=== PATIENT | female | born 1980 | race Hispanic/Latino ===

== ENCOUNTER 2017-03-07 07:30 | Inpatient (IN) | payer OTHER ==
[~2017-03-07] VITALS: Ht 157.5 cm; Wt 117.0 kg
[~2017-03-07 07:30] MED LIST: ALBU8.5H2 INHALATION; ASCO-294 PO; Carboprost 250 mCg/mL Inj IM PRN; CeFAZolin Inj 2 GM in IV Premix 1 EACH IV ONE; DOCU-41 PO; FERR-83 PO; GLBR5T PO; Hemorrhage Kit, Post Partum XX ONE; IBUP800T28 PO; LORA5SOL82 PO; Lactated Ringer's 1,000 ML IV SCH; METF-496 PO; METF500T4 PO; Methylergonovine 0.2 mg/mL Inj IM PRN; OXYC1TAB24 PO; Oxytocin 10 Unit/mL Inj IM PRN; Sodium Citrate-Citric Acid 15 mL Solution PO SCH
--- NOTE | 2017-03-07 08:45 | PCM.HPOB ---
Subjective Date of Service: Mar 07, 2017 Referring Provider: Admitting Physician: Nicole Andres MD Primary Care Physician: Alison Grayson Attending Physician: Nicole Andres MD Chief Complaint Scheduled repeat at term 38 weeks 6 days in a known type 2 diabetic History of Present History of Present Illness Karly is a 36y/o at 38 weeks and 6 days with known hx of DM2 on metfomin and glyburide with most recent Hb1 A1c of 6.0 on 12/21/2016 and with relatively well controlled blood glucoses, who presented to [facility] for scheduled repeat c- section. Patient has hx of one other term gestation with , and SAB X 2. Patient has had one previous Patient was followed by MFM prenatally. Has hx of chronic pain with pain management through the . Her JAIRO is 03-15-2017 by 8 week . Blood type O+, ab screen negative, Rubella immune, Varicella immune, HIV(-), Hep B and Hep C (-), RPR non reactive, GC/Cl (-). Vitals: HR 73,BP 125/65 OB History: (4), Para (1021) Obstetrical Complications: Other (Obesity, DM2) Past Medical History Obstetrical History: Spontaneous abortions X 2 Hx of 1 prior @ term, live Medical History: DM 2 on metformin and glyburide Surgical History: None Hx Tobacco Use: No Hx Alcohol Use: No Hx Substance Use: Yes (Marijuana use) Past Family History Family History None contributory Living Arrangement: with Family Genetic Screening/Counseling Genetic Screening/Counseling: Negative Baby father-had child w defect: No Review of Systems Constitutional: Y: Change of appitite, Chills, Fever, Sweats Eyes: Denies: Blurred Vision, Double Vision Cardiovascular: Denies: Chest Pain, Palpitations, SOB while laying flat Respiratory: Denies: Cough, Pleuritic Chest Pain, SOB with Exertion Gastrointestinal: Denies: Abdominal Pain Genitourinary: Denies: Dysuria Musculoskeletal: Denies: Neck Pain, Swelling Skin/Breasts: Denies: Bruising Skin: Denies: Rash Neurological: Denies: Change in Speech, Seizures Medications Home medications Metformin 100 mg daily Glyburide 5 mg daily Percocet 10/325 mg Allergy Coded Allergies: hydrocodone (Verified Adverse Reaction, Mild, nausea and vomiting, 03/07/17 ) Exam Vital Signs Vitals: HR 73,BP 125/65 Exam Not available Constitutional: Well-developed, Obese (massive obesity) HEENT: Atraumatic, PERRLA, Scleral Anicteric, Mucous Membr Moist/[place] Lungs: Clear to Auscultation, Normal Air Movement Heart: Exam Unremarkable, Regular Rate/Rhythm, Normal S1, Normal S2, No Murmurs /Rubs/Gallops Abdomen: Gravid Lymphatic: Normal: Neck Palpation of Nodes Extremities: Pulses Palpable x4, No Edema Skin: Rashes Neurological/Psychiatric: Alert, Oriented X3, No Acute Distress Neuro: Grossly Neurologically Intact, Reflexes 2+, Strength at 5/5 x4 ext Labs/Diagnostics Maternal Blood Type: O (+) Antibody Screen: negative Group B Strep Results: Negative Previous Infant with GBS: No Lab History: Positive for: Hx Chicken Pox, Negative for: Hx Gonorrhea, Hx HIV, Hx Syphilis OB Intrapartum Assessment/Plan Assessment # Scheduled repeat @ 38.6 weeks, secondary to High risk with hx of DM2 - Admit for scheduled - 2 grams cefazolin - Anethesia aware of scheduled . - routine c-setion orders complete. - NPO for procedure # Type 2 diabetes mellitus without complications on antiglycemic oral medication - Metformin 1000 mg daily - glyburide 5 mg daily for # Chronic pain on chronic narcotic use, present on admission, active - Takes Percocet 10/325 mg QID at home for chronic pain; - Per Dr. Lombardo pediatrics fetus is at risk for JACKELYN post delivery. Pain Evaluation: Adequate Pain Control VTE Mechanical Devices: Intermittant Pneumatic CD Rafi Love DO Mar 07, 2017 08:45
--- NOTE | 2017-03-07 09:00 | PCM.HPANE ---
Patient Data Surgeon Admitting Provider:Nicole Andres MD Attending Provider:Nicole Andres MD Primary Care Physician:Alison Grayson Other Provider:Senia Blount Anesthesia Reason for Visit Ht/WT & BMI Body Mass Index Allergies Coded Allergies: No Known Allergies (Unverified Allergy, Unknown, 08/26/15) Past Anesthesia History Anesthesia History: Denies:: Abnormal Airway, Anesthesia Reactions, Difficult Intubation, Fam Anesthesia Reaction, Fam Malignant Hypertherm, Malignant Hyperthermia Diabetes History Hx Diabetes?: Yes Current Bedside Blood Glucose: 103 Medications Active Scripts Glyburide 5 Mg Tab5 Mg PO BIDAC #30 TABLET Ref 0 Prov:Allred,Vik H DO 10/29/15 Metformin 500 Mg Tablet1,000 Mg PO BID #30 TABLET Ref 0 Prov:Allred,Vik H DO 10/29/15 Ferrous Sulfate 325 Mg [id number] Mg PO DAILY PRN Fe defficiency #90 TABLET Ref 0 Prov:Allred,Vik H DO 10/29/15 Ascorbate Calcium (Vitamin C)500 Mg [id number] Mg PO DAILY #90 TABLET Prov:Allred,Vik H DO 10/29/15 Ibuprofen 800 Mg Qlircg209 Mg PO TID PRN For Pain #40 TABLET Prov:Allred,Vik H DO 10/29/15 oxyCODONE-Acetaminophen 5-325 mg 1 Each Tablet1 Tab PO Q4H PRN For Pain #40 TABLET Prov:Allred,Vik H DO 10/29/15 Docusate Sodium (Colace)100 Mg Dyibghz401 Mg PO BID PRN For Constipation #60 CAPSULE Prov:Allred,Vik H DO 10/29/15 Glyburide 5 Mg Tab7.5 Mg PO BIDAC 30 Days Ref 0 Prov:Clifford Villalpando MD 10/27/15 Albuterol HFA (Proair HFA)8.5 Gm Hfa.aer.ad2 Puffs INHALATION Q4H #1 INHALER Prov:Eliu Nolan MD 08/26/15 Reported Medications Loratadine 5 Mg/5 Ml (5 Ml) Xihoruyw91 Mg PO DAILY 10/27/15 Metformin 500 Mg Bblzfx175 Mg PO DAILY Ref 0 10/27/15 Metformin ER 1,000 Mg Tablet1,000 Mg PO BID Ref 0 10/27/15 History History of ENT Problems?: No HEENT History: Denies:: Abnormal Airway Cataracts Difficult Intubation Dysphagia Glaucoma Hearing Problem Sinus Problem TMJ Denture Type: None Teeth Condition: Within Normal Limits Hx of Heart Problems?: No Cardiovascular History: Denies:: AICD Abdominal Aortic Aneurism Atrial Fibrillation Cardiac Surgery Chest Pain Congestive Heart Failure Coronary Artery Disease Edema Heart Murmur Hypertension Irregular Heartbeat Pacemaker Peripheral Vascular Rheumatic Fever Thrombophlebitis Valvular Heart Disease Hx of Respiratory Problem?: No Respiratory History: Denies:: Asthma COPD Chest Surgery Cough Dyspnea Emphysema Hemoptysis Oxygen Administration Pneumonia Pulmonary Embolism Tuberculosis Use of C-PAP Machine Use of Inhalers / NEBS Hx Neurologic Problems?: No Neurological History: Denies:: Alzheimer's Disease CVA Dementia Dizziness Headaches Multiple Sclerosis Parkinson's Disease Peripheral Neuropathy Seizures TIA Hx of GI Problems?: No Hx of Problems?: No Genitourinary History: Denies:: HX of Hemodialysis Kidney Stones Urinary Tract Infection HX of Peritoneal Dialysis: No Female Hx: Positive for:: Currently Other History/Comment Had a previous C section Skin History: Denies:: History Skin Disorders? Pressure Ulcers Hx Musculoskeletal Problems?: No Psycho Social History: Denies:: Anxiety Bipolar Disorder Hx Depression Suicide Attempt Hx Surgeries?: Yes Hx Any Other Health Problems?: No Hx Diabetes: Yes Hx Alcohol Use: NoHx Substance Use: No Smoking Status: Former Smoker Stop/[place] Treated for Sleep Apnea?: No Do You Have a CPAP Machine?: No Risk Assessment Category Category 1A: Patient has history of documented sleep apnea, and HAS NOT received any narcotic, sedative or anesthesia administration during this stay. Category 1B: Patient has history of documented sleep apnea, and HAS received any narcotic , sedative or anesthesia administration during this stay Category 2: Patient has SUSPECTED Obstructive Sleep Apnea, and HAS received any narcotic , sedative or anesthesia administration during this stay. Category 3: Patient has SUSPECTED Obstructive Sleep Apnea and HAS NOT received narcotic, sedative or anesthesia administration during this stay. Category 4: Outpatient in Procedural Areas with known sleep apnea or who screen positive for High Risk via the STOP/BANG questionnaire. Exam Exam General Appearance: Alert, Oriented X3, Cooperative HEENT/AIRWAY: MP 2 Lungs: Clear to Auscultation Heart: Exam Unremarkable Meds/Labs/Diagnostics Admission Meds Current Medications Lactated Ringer's (Lr) 1,000 ml @ 125 mls/hr Q8H IV Last administered on 08:46; Start 03/07/17 at 06:00; Stop 03/07/17 at 13:59 Citric Acid/ Sodium Citrate (Bicitra) 30 ml PREOP PO Last administered on 08:50; Start 03/07/17 at 06:00 Plan Impression Patient chart reviewed, patient interviewed and anesthestic plan with risks, benefits, and alternatives discussed, and informed consent obtained. ASA Physical Status: ASA2 Mod Systemic Disease Anesthetic Plan: SAB Bene/Risks/Altern/Consents: Yes HP Complete Prior to Induction: Yes Jamie Bui MD Mar 07, 2017 09:00
[2017-03-07] MEDS ORDERED: Morphine PF 1 mg/mL 10 mL Inj ONE (09:01)
[2017-03-07] MEDS ORDERED: Lactated Ringer's 1,000 ML IV SCH (11:18)
[2017-03-07] MEDS ORDERED: Sodium Chloride LOK Flush 10 mL Syringe IVFLUSH PRN ×2 (11:20→11:55)
[2017-03-07] MEDS ORDERED: LANOlin HPA 7 Gm Ointment TOPICAL PRN ×2 (11:20→11:55)
[2017-03-07] MEDS ORDERED: Oxytocin 30 Units/500 mL LR 30 UNITS in IV Premix 1 EACH IV PRN ×2 (11:20→11:55)
[2017-03-07] MEDS ORDERED: Methylergonovine 0.2 mg/mL Inj IM PRN ×2 (11:20→11:55)
[2017-03-07] MEDS ORDERED: Oxytocin 10 Unit/mL Inj IM PRN ×2 (11:20→11:55)
[2017-03-07] MEDS ORDERED: Carboprost 250 mCg/mL Inj IM PRN ×2 (11:20→11:55)
[2017-03-07] MEDS ORDERED: Hemorrhage Kit, Post Partum XX ONE ×2 (11:20→11:55)
[2017-03-07] MEDS ORDERED: oxyCODONE-Acetamin 5-325 mg Tablet PO PRN (11:20)
[2017-03-07] MEDS: Lactated Ringer's 1,000 ML IV SCH ×2 (11:53→15:31)
[2017-03-07] MEDS ORDERED: Acetaminophen IV 1,000 MG in IV Premix 1 EACH IV PRN (11:55)
[2017-03-07] MEDS ORDERED: diphenhydrAMINE 50 mg Capsule PO PRN (11:55)
[2017-03-07] MEDS ORDERED: hydrOXYzine Pamoate 25 mg Capsule PO PRN (11:55)
--- NOTE | 2017-03-07 11:56 | PCM.ANEP1 ---
Post Anesthesia PACU Phase 1 Assessment Anesthetic Administered: SAB Level of Alertness: Awake, talking SUNSHINE's with Equal Strength: No Pain: No Nausea or Vomiting: No CV Function & Hydration Stable: Yes Airway Device: Lungs: Clear to Auscultation Dermatome Level: T10 (Umbilicus) PACU Phase 2 Assessment Complications: No Follow up Care: No Patient Instructions Provided: N/A Comments Spinal block resolving, epidural cath removed, tip intact Jamie Bui MD Mar 07, 2017 11:56
--- NOTE | 2017-03-07 12:51 | OP ---
[address] [address] OPERATIVE REPORT PATIENT: JENNY EUGENE : 1980 MR#: [id number] ADMIT: 03/07/2017 JOB ID: [id number] DATE OF SURGERY: 03/07/2017 PROCEDURE: Repeat delivery with bilateral tubal ligation. PREOPERATIVE DIAGNOSIS(ES): 1. Intrauterine at 37 weeks. 2. Diabetes type 2. 3. History of prior delivery. 4. Desires sterilization. POSTOPERATIVE DIAGNOSIS(ES): 1. Intrauterine at 37 weeks. 2. Diabetes type 2. 3. History of prior delivery. 4. Desires sterilization. SURGEON: Clifford Villalpando MD C UNIX DEVELOPER: Nicole Andres MD. The assistance of Dr. Andres was necessary for tissue retraction, exposure, visualization of anatomic structures, help with the delivery of the in this morbidly obese patient, and helping with wound closure and providing appropriate hemostasis. ANESTHESIA: Spinal. ESTIMATED BLOOD LOSS: 800 mL. ESTIMATED URINE OUTPUT: 300 mL FLUIDS: 1 L of Ringer lactate COMPLICATIONS: None. FINDINGS: Normal appearance of the uterus and adnexa. Delivered male with Apgars 9 at one minute and 9 at 5 minutes, pending weight at the time of the dictation. DESCRIPTION OF PROCEDURE: The patient was brought to the operating room, where she underwent spinal anesthesia with some difficulty due to body habitus and obesity. When spinal anesthesia was established, the patient was positioned in supine position with a leftward tilt. She received preoperative antibiotics. The patient desired bilateral tubal ligation as the method of her control and informed consent was obtained for repeat delivery and bilateral tubal ligation. The time-out was performed, verifying correct patient and correct procedure. The Anastasia Hugger was used to maintain adequate core body temperature. Pfannenstiel skin incision was made after the pannus was elevated, it was made about 5 cm above the skin crease. It was carried down to the underlying layer of rectus muscle fascia using scalpel. The underlying vessels were ligated using hemostats and Bovie. The rectus muscle fascia was reached, transected with a scalpel, and the incision was extended laterally using Duvall scissors. The upper aspect of the rectus muscle fascia was grasped with two Corinna clamps and the rectus muscle fascia was from the underlying rectus muscle using Duvall scissors. In a similar fashion, the lower aspect of the fascia was grasped with two Corinna clamps and the rectus muscle fascia was from the underlying rectus muscle using Duvall scissors. The rectus muscles were in the midline. The peritoneum was identified, tented up with two Shira clamps, entered sharply with Metzenbaum scissors, and extended laterally. The bladder blade was placed. Using scalpel, lower segment transverse uterine incision was made and extended laterally with bandage scissors. Packing was applied to pack the bowel away from the operative field, it was removed after delivery of the . The head of the was identified. The bladder blade was removed and male was atraumatically delivered. Delayed cord clamping was allowed for 60 seconds. The was handed to the waiting respiratory therapist. Cord blood was sent. The placenta was removed by applying gentle pressure on the fundus of the uterus. The uterus was exteriorized and cleared from all the blood clots and debris using dry laparotomy sponge. The uterine incision was repaired with two layers of 0 Monocryl. Good hemostasis was reassured. The bilateral tubal ligation was performed using 2-0 chromic. The patient's left fallopian tube was elevated with a Montez clamp. A window in the mesosalpinx was created with the Bovie and the proximal and distal ends of the tube were double suture-ligated using 2-0 chromic. Modified [place] technique was used. The segment of the tube was excised and sent to pathology. Good hemostasis was achieved. The same was done on the patient's contralateral side. The pelvis was irrigated with warm normal saline. The lower uterine transverse incision was checked for hemostasis. Two bleeding spots at the incision side where made hemostatic using two [id number] 0-Vicryl sutures. The uterus was repositioned back into the abdomen. The rectus muscle fascia and peritoneum were reapproximated using interrupted 2-0 Vicryl sutures. The rectus muscle fascia was closed with 0-Vicryl. The subcuticular tissue and Enrique fascia were reapproximated with two layers of interrupted 2-0 Vicryl sutures. The skin was closed with ana m. Hemostatic dressing was applied. The patient was repositioned back into the supine position. She tolerated the procedure well and was transferred to the recovery room in stable condition.
[2017-03-07] MEDS ORDERED: Atropine 0.4 mg/mL Inj IV PRN (13:00)
[2017-03-07] MEDS ORDERED: EPHEDrine Sulfate 50 mg/mL Inj IVPUSH PRN (13:00)
[2017-03-07] MEDS: fentaNYL-PF 50 mCg/mL 2 mL Inj IVPUSH PRN ×2 (13:15→13:35)
[2017-03-07] MEDS: oxyCODONE-Acetamin 5-325 mg Tablet PO PRN ×3 (15:58→23:52)
[2017-03-07 17:32] LABS: Mean Corpuscular Hemoglobin 29.8 pg (27.0-35.0)
[2017-03-07] MEDS ORDERED: GLBR5T PO (18:44)
[2017-03-07] MEDS ORDERED: PREN1TAB87 PO (18:47)
[2017-03-07] MEDS ORDERED: PREN-148 PO (18:47)
[2017-03-07] MEDS ORDERED: GABA-502 PO (18:52)
[2017-03-08] MEDS: oxyCODONE-Acetamin 5-325 mg Tablet PO PRN ×3 (03:49→20:49)
[2017-03-08] MEDS: Lactated Ringer's 1,000 ML IV SCH ×3 (03:53→19:53)
--- NOTE | 2017-03-08 07:58 | NUR ---
Social Work: Family Assessment Data: See initial assessment. Patient is a 36 year old female who was admitted on 03/07/17. Patient's insurance is [employer] and her PCP is Alison COCHRAN. EMR reviewed. SW met with patient to discuss discharge planning. SW role explained. Patient states that she lives with her spouse Vinh Mary and two children. Patient has an 18 year old son named Robert Fernandez who she adopted at the age of 12. Patient also has a 16 month old daughter named Jose Manuel Lopez. Patient denies any past or current involvement with CPS. Patient has chosen the name Aletha Lopez for . Patient denies having a hx of mental health. Patient states that neither she or FOB are working at this time and are relying on state assistance. Patient states that she receives TANF, food stamps, and [employer] assistance. Patient denies having a hx of domestic violence or abuse. Patient denies a hx of substance abuse. Patient states that she did consume medical marijuana during to assist with the nausea that she experience during . Patient also states that she administered her Percocet as prescribed by her MD. Outside of her family, patient considers her best friend Eliana to be a good source of support. Patient states that she is Type II diabetic however, has not been diagnosed. Upon discharge, patient and will discharge home with family. Transportation will be provided by spouse. SW provided patient with a discharge planning checklist and encouraged to call with any questions or concerns. Phone number provided. SW also provided patient with a community resource packet. Assessment: Patient and will discharge home with family once medically stable. Plan: Patient and will discharge home with family once medically stable. Transportation will be provided by spouse. SW has provided patient with a community resource packet. Patient has no additional needs at this time. WAQAS Serra Addendum: 03/08/17 at 0812 by ELIZABETH PARRISH Amended: Links added.
[2017-03-08] MEDS: Ascorbic Acid 500 mg Tablet PO SCH (08:15)
--- NOTE | 2017-03-08 09:48 | PCM.PNOBPP ---
Subjective Date of Service Mar 08, 2017 Post : Repeat [place]re[place] Delivery Subjective Karly is a now with history of diabetes mellitus type II, and obesity, who was followed by [facility], and who presented for scheduled low transverse repeat on 03/07/2017. Postop day 1: Status post scheduled repeat low transverse . Overnight: Patient did well postoperatively, and has remained afebrile and hemodynamically stable. Most recent blood glucoses were done at 0330 and was 123. She continues with metformin 1000 mg daily and glyburide 5 mg daily for her type II diabetes. Pain has been an issue for this patient post and she describes 8-9 out of 10 pain despite when necessary Percocet every 4 which she has been getting, and when necessary fentanyl 25-50 g. Otherwise patient has no complaints and is ambulating independently. There is a Loyola in place that is draining clear light yellow colored urine, SCDs are in place. Patient's appetite is good. Her postdelivery lochia remains light and red. Expect patient to remain overnight again with possible discharge in the morning. Lochia: Light (red) Pain Management: PO pain meds, IV Push (fentanyl 25-50 g when necessary) Gastrointestinal: Good Appetite, No N/V Postop Activity: Ambulating Independently Group B Strep Results: Negative Blood Type: O (+) Labs Laboratory Tests 03/07/17 17:30: White Blood Count 11.0, Red Blood Count 3.49, Hemoglobin 10.4, Hematocrit 31.4, Mean Corpuscular Volume 90.0, Mean Corpuscular Hemoglobin 29.8, Mean Corpuscular Hemoglobin Concent 33.1, Red Cell Distribution Width 13.2, Platelet Count 166 Exam Vital Signs Vital Signs Blood pressure 114/56, heart rate 74, oxygen sat 97%, respirations 16, temperature 36.2 Celsius, 97.2 Fahrenheit, blood glucose 123 at 03:30 on 2016. Vital Signs: VS reviewed, stable Exam Abdomen: Fundus firm, Abdomen soft, Abdomen appropriately tender Perineum: Intact : UOP has been (urinary output, patient has Loyola in place and is draining light clear yellow-colored urine.) Extremities: No cords, Normal pulses, No tenderness/swelling, No edema Lungs: Clear to Auscultation, Normal Air Movement Heart: Exam Unremarkable, Regular Rate/Rhythm, Normal S1, Normal S2, No Murmurs /Rubs/Gallops General: Alert, Oriented X3, Cooperative Surgical Wound : Incision General Appearence: [place], Wound under dressing Dressing & Drainage Status: Dry & Intact, Reinforced, No Odor OB Post Assessment/Plan Assessment # Status post scheduled repeat low transverse at 38.6 weeks, secondary to High risk with hx of DM2 - Postop day 1. - Patient is planning of 8-9 out of 10 pain despite being on Percocet 05/325 milligram tablets every 4, and when necessary fentanyl 25-50 g IV. Recall patient has chronic pain and is managed by the [facility] as an outpatient. Patient is on Percocet 03/13/2025 milligrams as an outpatient. - Per nursing patient was not receiving her PRN Ibuprofen. We will give Ibuprofen with percocet and reevaluate pain conto. If pain still not controlle will increase dose from Percocet 5/325 mg tablets to 10/325 mg tablets. - Loyola in place, draining clear light yellow-colored urine. - SCDs in place - Loyola to remain in place for additional 24 hours with voiding trial tomorrow morning and if able to void will plan to discharge if appropriate. # Type 2 diabetes mellitus without complications on antiglycemic oral medication - Continue Metformin 1000 mg daily - Continue glyburide 5 mg daily for # Chronic pain on chronic narcotic use, present on admission, active - Takes Percocet 10/325 mg QID at home for chronic pain; - Per Dr. Lombardo pediatrics fetus is at risk for JACKELYN post delivery. Pain Evaluation: Adequate Pain Control VTE Mechanical Devices: Intermittant Pneumatic CD Rafi Love DO Mar 08, 2017 09:48
[2017-03-08] MEDS ORDERED: Ondansetron 8 mg ODT Tablet PO PRN (20:15)
[2017-03-09] MEDS: Lactated Ringer's 1,000 ML IV SCH ×2 (03:53→11:53)
[2017-03-09] MEDS: oxyCODONE-Acetamin 5-325 mg Tablet PO PRN ×3 (05:06→21:03)
--- NOTE | 2017-03-09 06:58 | PCM.DIOB ---
Kathy Garcia DO 03/09/17 0658: Obstetrical Disch Instruction Date of Service: Mar 09, 2017 Dates of Hospitalization Date of Hospital Admission Mar 07, 2017 at 07:48 Providers Admitting Physician: Nicole Andres MD Primary Care Physician: Alison Grayson Attending Physician: Nicole Andres MD Discharge Diagnosis Discharge Diagnosis Status post scheduled repeat low transverse at 38.6 weeks, secondary to High risk with hx of DM2 Post Operative diagnosis Status post scheduled repeat low transverse at 38.6 weeks, secondary to High risk with hx of DM2 Problems: Diet Discharge Diet: No restrictions Activity Discharge Activity-General: Pelvic Rest for 6 weeks, Balance rest and activity , No lifting >15 pounds for 2 weeks Dressing and Incisional Care Dressing Care: Keep dressing clean, dry & intact Hygiene: May shower, DO NOT soak incision under water, NO bathtub, hot tub or whirlpool, Witch Sirena pads Additional Instructions Discharge Instructions Take your Percocet pain medicine as needed only, we will give you 20# Percocet. Do not take more make pain medication than is necessary. Percocet has Tylenol 325 mg per pill please do not take additional Tylenol to supplement your pain medication. Do not drive while taking strong pain medication such as Percocet. You have been given a prescription for ibuprofen for pain. I prefer you take this before the Percocet I prefer you take ibuprofen first and see if this controls your pain. You has been provided a prescription for docusate a stool softener. Please take docusate sodium so that you do not become constipated. If you experience any increased bleeding please call women's health. If you begin to experience dizziness weakness or large amount of bleeding go to the emergency room. This means if you soak 2 or more pads for more than 2 hours than call the clinic or go to the Emergency Room. You have been set up for an appointment for follow-up in 2 weeks at [facility]. If you experience depression, Please seek help by calling women's health or the Emergency Room. Nothing per vagina for 6 weeks (this includes tampons and intercourse). If your breast become red and warm and swollen continue to nurse and seek medical attention for evaluation for mastitis. Drink plenty of water and eat lots of fruits and vegetables. If you spike a fever in the next 2 weeks please call [facility]. Follow Up Plan Follow Up Plan follow up 2 weeks Follow-up appointment: Weeks (2) Call your provider for: Fever or Chills, Shortness of breath, Heavy vaginal bleeding Rafi Love DO 03/10/17 0809: Obstetrical Disch Instruction Date of Service: Mar 10, 2017 Discharge Diagnosis Problems: (1) Previous section Status: Acute ICD Code: Z98.891 (2) S/P repeat low transverse Status: Acute ICD Code: Z98.891 (3) Diabetes in undelivered Qualifiers: Diabetes in type: pre-existing, type 2 Qualified Code: O24.119 - Pre-existing type 2 diabetes mellitus, in , unspecified trimester Status: Acute ICD Code: O24.919 (4) Type 2 diabetes mellitus Qualifiers: Diabetes mellitus complication status: without complication Diabetes mellitus salvage determiner insulin use: without salvage determiner use Qualified Code: E11.9 - Type 2 diabetes mellitus without complications Status: Acute ICD Code: E11.9 Activity Discharge Activity-General: Try not to overdue, Be up and about, Activity as pain allows, Activity as energy allows, No lifting >10 pounds for 4-6 weeks Dressing and Incisional Care Dressing Care: Keep dressing dry for (10 days) Follow Up Plan Follow Up Plan Follow up in 1 week to 10 days for staple removal in the [facility] clinic. Follow-up appointment: Weeks (1 week to 10 days and 6 weeks in the [facility].) Sarthak Keaen MD 03/10/17 1451: Obstetrical Disch Instruction Attending Statement I have participated in evaluation and counselling of the patient along with Dr. Love prior to the patient's discharge and agree fully with the pre- discharge findings, the decision for discharge, medications, counselling provided, and medications at the time of discharge. Patient will be calling the office for follow-up next week for close follow-up and an incision check. Kathy Varela DO Mar 09, 2017 06:58 Rafi Love DO Mar 10, 2017 08:09 Sarthak Keane MD Mar 10, 2017 14:51
[2017-03-09] MEDS ORDERED: OXYC1TAB24 PO (07:00)
[2017-03-09] MEDS ORDERED: IBUP800T28 PO (07:00)
[2017-03-09] MEDS ORDERED: DOCU-41 PO (07:01)
--- NOTE | 2017-03-09 07:05 | PCM.DC.OB ---
Obstetrical Discharge Summary Date of Service Mar 10, 2017 Date of hospital admission Mar 07, 2017 at 07:48 Date of Discharge: Mar 10, 2017 Providers Admitting Physician: Nicole Andres MD Primary Care Physician: Alison Grayson Attending Physician: Nicole Andres MD Diagnosis at Time of Discharge status post repeat Cesarian section at 38 weeks, 6 days Problems: (1) Diabetes in undelivered Qualifiers: Diabetes in type: pre-existing, type 2 Qualified Code: O24.119 - Pre-existing type 2 diabetes mellitus, in , unspecified trimester Status: Acute ICD Code: O24.919 (2) 38 weeks gestation of Status: Acute ICD Code: Z3A.38 (3) Type 2 diabetes mellitus Qualifiers: Diabetes mellitus complication status: without complication Diabetes mellitus penitentiary insulin use: without terminal carman use Qualified Code: E11.9 - Type 2 diabetes mellitus without complications Status: Acute ICD Code: E11.9 (4) Previous section Status: Acute ICD Code: Z98.891 (5) S/P repeat low transverse Status: Acute ICD Code: Z98.891 Consultations Anesthesia for epidural. Complicated placement given body habitus. Invasive procedures Repeat low transverse section. Date of Procedure: Mar 07, 2017 Brief History and Physical: Karly is a 36y/o at 38 weeks and 6 days with known hx of DM2 on metfomin and glyburide with most recent Hb1 A1c of 6.0 on 12/21/2016 and with relatively well controlled blood glucoses, who presented to [facility] for scheduled repeat c- section. Patient has hx of one other term gestation with , and SAB X 2. Patient has had one previous Patient was followed by M prenatally. Has hx of chronic pain with pain management through the . Her JAIRO is 03-15-2017 by 8 week US. Blood type O+, ab screen negative, Rubella immune, Varicella immune, HIV(-), Hep B and Hep C (-), RPR non reactive, GC/Cl (-). Vitals: HR 73,BP 125/65 Hospital Course: Karly is a 36y/o now at 38 weeks and 6 days with known hx of DM2 on metfomin and glyburide with most recent Hb1 A1c of 6.0 on 12/21/2016 and with well controlled blood glucoses, who presented to [facility] for scheduled repeat . General: Alert and oriented 3 no acute distress resting comfortably in the bed. Patient is obese. HEENT: Head normocephalic atraumatic no ecchymoses, eyes equally round , nares patent, Chest: Heart regular rate and rhythm, no murmur, lungs: CTAB all alexis Abdomen: Appropriately tender s/p , , fundus firm just below the level of the umbilicus, no rebound no tenderness no guarding. Incision appears very well approximated, ana m in place. No erythema or signs of infection. Genitourinary: No CVA tenderness Extremities: No LE edema, pulses equal bilaterally Psychiatric: Patient's mood is and affect is congruent, she is cheerful and communicative. Hospital Course: Repeat was successfully performed with bilateral tubal ligation. On POD #1, patient reported continued pain with moderate control on Ibuprofen and Percocet5 -325mg. Blood sugars have been under good control on Metformin and Glyburide. Since that time patient is recovering well, has appetite, is walking , has passed a bowel movement without difficulty, is voiding without difficulty. Patient was d/c home on post op day 3, hospital day 4 with follow up in 2 weeks. Albuterol HFA (Proair HFA) 8.5 Gm Hfa.aer.ad 2 PUFFS INHALATION Q4H Prescribed by: BHARTI ZARATE MD Last Taken: Unknown Dose on 01/11/17 Docusate Sodium (Colace) 100 Mg Capsule 100 MG PO BID Prescribed by: KATHY GARCIA DO Gabapentin (Gabapentin) 300 Mg Capsule 300 MG PO DAILY PRN PRN For Pain ( Reported) Last Taken: Unknown Dose on 02/20/17 Glyburide (Glyburide) 5 Mg Tab 5 MG PO DAILY (Reported) Last Taken: Unknown Dose on 03/06/17 0800 Ibuprofen (Ibuprofen) 800 Mg Tablet 800 MG PO Q6H PRN PRN For Pain Prescribed by: KATHY GARCIA DO Metformin ER (Metformin ER) 1,000 Mg Tablet 1,000 MG PO BID (Reported) Last Taken: Unknown Dose on 03/06/17 2000 Vit W-Ca,Fe,FA(<1 mg) ( Vitamins) 1 Each Tablet 1 EACH PO (Reported) Last Taken: Unknown Dose on 03/06/17 0800 oxyCODONE-Acetaminophen 5-325 mg ( oxyCODONE-Acetaminophen 5-325 mg) 1 Each Tablet 1-2 TAB PO Q4H PRN PRN For Pain Prescribed by: KATHY GARCIA DO Discontinued Medications Ascorbate Calcium (Vitamin C) 500 Mg Tablet 500 MG PO DAILY Prescribed by: RICA POSADAS DO Docusate Sodium (Colace) 100 Mg Capsule 100 MG PO BID PRN PRN For Constipation Prescribed by: RICA POSADAS DO Ferrous Sulfate (Ferrous Sulfate) 325 Mg Tablet 325 MG PO DAILY PRN PRN Fe defficiency Prescribed by: RICA POSADAS DO Glyburide (Glyburide) 5 Mg Tab 7.5 MG PO BIDAC Prescribed by: ALFA DILLARD MD Glyburide (Glyburide) 5 Mg Tab 5 MG PO BIDAC Prescribed by: RICA POSADAS DO Ibuprofen (Ibuprofen) 800 Mg Tablet 800 MG PO TID PRN PRN For Pain Prescribed by: RICA POSADAS DO Loratadine (Loratadine) 5 Mg/5 Ml (5 Ml) Solution 10 MG PO DAILY (Reported) Metformin (Metformin) 500 Mg Tablet 500 MG PO DAILY (Reported) Metformin (Metformin) 500 Mg Tablet 1,000 MG PO BID Prescribed by: RICA POSADAS DO oxyCODONE-Acetaminophen 5-325 mg (oxyCODONE-Acetaminophen 5-325 mg) 1 Each Tablet 1 TAB PO Q4H PRN PRN For Pain Prescribed by: RICA POSADSA DO Discharge Diet: No restrictions Discharge Activity-General: Pelvic Rest for 6 weeks, Balance rest and activity , No lifting >15 pounds for 2 weeks Attending Statement: I have personally participated in the evaluation and decision making involved in this patient's care as reflected in this note. Kathy Garcia DO Mar 09, 2017 07:05 Rafi Love DO Mar 10, 2017 08:19 Sarthak Keane MD Mar 10, 2017 14:53
--- NOTE | 2017-03-09 07:58 | PCM.PNOBPP ---
Subjective Date of Service Mar 09, 2017 Post : Repeat Ceserean Delivery Subjective POD 2 s/p repeat low cesarian section: Overnight the patient continued to complain of moderate 6/10 pain at her incision site. Her bird catheter was removed and she reports significant relief with good urine output. This morning the patient states that she is feeling better with moderate continued pain localized around her incision site. She states that she has had a good appetite without any nausea or vomiting. Patient is able to ambulate independently. Her blood glucose control has been good, with fasting blood glucose values in the low 100s. Denies any fever or chills. Anticipate discharge home tomorrow with Rx for Ibuprofen, Percocet and Docusate. Lochia: Light (red) Pain Management: PO pain meds, IV Push (fentanyl 25-50 g when necessary) Gastrointestinal: Good Appetite, No N/V Postop Activity: Ambulating Independently Group B Strep Results: Negative Blood Type: O (+) RH Type: Positive Labs Laboratory Tests 03/07/17 17:30: White Blood Count 11.0, Red Blood Count 3.49, Hemoglobin 10.4, Hematocrit 31.4, Mean Corpuscular Volume 90.0, Mean Corpuscular Hemoglobin 29.8, Mean Corpuscular Hemoglobin Concent 33.1, Red Cell Distribution Width 13.2, Platelet Count 166 Exam Vital Signs Vital Signs: VS reviewed, stable Exam Abdomen: Uterus is, Fundus firm, Abdomen soft, Abdomen appropriately tender ( moderate tenderness surrounding incision, incision is closed with ana m and appears to be non-erythematous without drainage ) : Voiding without difficulty Extremities: Edema 1+ Lungs: Clear to Auscultation, Normal Air Movement Heart: Exam Unremarkable, Regular Rate/Rhythm, Normal S1, Normal S2, No Murmurs /Rubs/Gallops General: Alert, Oriented X3, Cooperative, Mild Distress (secondary to pain ) OB Post Assessment/Plan Assessment # Status post scheduled repeat low transverse at 38.6 weeks, secondary to High risk with hx of DM2 - Postop day 2 - Patient with persistent moderate pain at her incision site. She is receiving Percocet 05/325 milligram tablets every 4 and Ibuprofen 800mg, and when necessary fentanyl 25-50 g IV - Patient ambulating independently SCDs in place - Bird was removed yesterday and patient is voiding without difficulty - Anticipate discharge tomorrow # Type 2 diabetes mellitus without complications on antiglycemic oral medication - Continue Metformin 1000 mg daily - Continue glyburide 5 mg daily # Chronic pain on chronic narcotic use, present on admission, active - Takes Percocet 10/325 mg QID at home for chronic pain; - Per Dr. Lombardo pediatrics fetus is at risk for JACKELYN post delivery. Pain Evaluation: Adequate Pain Control VTE Mechanical Devices: Intermittant Pneumatic CD Post plan: Discharge home tomorrow Kathy Garcia DO Mar 09, 2017 07:58
[2017-03-09] MEDS: Ascorbic Acid 500 mg Tablet PO SCH (08:48)
--- NOTE | 2017-03-09 13:45 | PATH ---
SURGICAL PATHOLOGY Attending Physician:Clifford Villalpando MD CASE STATUS: Signed Out PATIENT NAME: JENNY EUGENE PID: [id number] : 1980 DATE COLLECTED:03/07/2017 19:43 SPECIMEN: 1: Fallopian Tube, Biopsy 2: Fallopian Tube, Biopsy CLINICAL HISTORY: PRIOR , DESIRES BTL WITH REP CLS, BTL WITH , , 38 6/7 GESTATION, TYPE II DM, SCHEDULED , EXCISION, LMP UNKNOWN 1). LEFT FALLOPIAN TUBE 2). RIGHT FALLOPIAN TUBE FINAL DIAGNOSIS: 1-2. Left, Right Fallopian Tubes, Bilateral Tubal Ligation: Two complete cross-sections of fallopian tube. ICD10: Z30.2 GROSS DESCRIPTION: The specimen is received in 2 containers not labeled as to the fixative and both labeled with the patient's name. 1). The specimen is labeled "L. fallopian tube" and consists of a pink-jaimes nonfimbriated cylindrical shaped portion of tissue which measures 1.5 x 1.0 x 0.6 CM. The specimen is inked blue, sectioned into 4 pieces and entirely submitted in cassette 1A. 2). The specimen is labeled "R. fallopian tube" and consists of a pink-jaimes nonfimbriated cylindrical shaped portion of tissue which measures 1.0 x 0.8 x 0.6 CM. The specimen is inked blue, sectioned into 3 pieces and entirely submitted in cassette 2A. 03/07/2017DC ICD-9 CODES: CPT CODES: 78740, 29300 Electronically Signed Out Balaji Santiago MD, Ph.D. [facility] Pathology [facility] [address], [place] [address] Technical component performed at [facility], [facility] [address], [place], [address]
[2017-03-10] MEDS: oxyCODONE-Acetamin 5-325 mg Tablet PO PRN ×2 (05:01→08:58)
[2017-03-10] MEDS: Ascorbic Acid 500 mg Tablet PO SCH (08:55)
[2017-03-10 10:49] VITALS: BP 122/73; PULSE 72; RESP 16
== END 2017-03-10 12:45 | disposition home or self-care (01) | DRG 765 ==
LOC: EDSTATUS 07:30 → FBC 07:48
PROVIDERS: ADMIT Obstetrics & Gynecology; ATTEND Legal Medicine
PROC: 0UB70ZZ Excision of Bilateral Fallopian Tubes, Open Approach (ICD-10-PCS; 2017-03-07)
PROC: 10D00Z1 Extraction of Products of Conception, Low, Open Approach (ICD-10-PCS; principal; 2017-03-07 07:30)
DX: O34.211 Maternal care for low transverse scar from previous cesarean delivery (principal); O24.12 Pre-existing type 2 diabetes mellitus, in childbirth; O99.214 Obesity complicating childbirth; Z68.42 Body mass index [BMI] 45.0-49.9, adult; E11.9 Type 2 diabetes mellitus without complications; Z3A.38 38 weeks gestation of pregnancy; Z37.0 Single live birth; Z79.84 Long term (current) use of oral hypoglycemic drugs; G89.29 Other chronic pain; E66.01 Morbid (severe) obesity due to excess calories; Z30.2 Encounter for sterilization